=== PATIENT | male | born 1990 | race African-American/Black ===

== ENCOUNTER 2020-09-30 12:49 | Inpatient (IN) | payer OTHER ==
[2020-09-30] VITALS (15 sets, daily range): BP systolic 98–133; BP diastolic 51–80
[~2020-09-30] VITALS: Ht 177.8 cm; Wt 73.2 kg
[2020-09-30 13:21] LABS: BASO % 0.1 % (0.0-1.0); LYMPH % 7.1 % (27.0-41.0); MEAN CELL VOLUME 79.5 fl (80.0-94.0); MEAN CORPUSCULAR HGB 26.5 pg (27.0-31.0); MEAN CORPUSCULAR HGB CONC 33.3 g/dl (33.0-37.0); MEAN PLATELET VOLUME 9.2 fl (9.6-12.3); MONO # 0.7 10*3/uL (0.1-1.0); MONO % 4.7 % (3.0-9.0); NEUT % 87.8 % (47.0-73.0); PLATELET COUNT AUTOMATED 417 10*3/uL (130-400); RED BLOOD COUNT 6.16 10*6/uL (4.50-5.90); RED CELL DISTRI WIDTH 13.2 % (0-14.5); WHITE BLOOD COUNT 14.8 10*3/uL (4.8-10.8)
[2020-09-30 13:37] LABS: ALBUMIN 4.4 gm/dl (3.1-4.5); ALKALINE PHOSPHATASE 90 U/L (45-117); BUN 16 mg/dl (7-24); CHLORIDE 101 mmol/L (98-107); CREATININE 1.23 mg/dL (0.70-1.30); POTASSIUM 3.3 mmol/L (3.5-5.1); SGOT/AST 9 IU/L (3-35); SGPT/ALT 18 U/L (12-78); SODIUM 139 mmol/L (136-145); TOTAL PROTEIN 9.7 gm/dL (6.4-8.2)
[2020-09-30 13:38] LABS: TROPONIN I < 0.015 ng/ml (<0.045)
[2020-09-30 14:14] LABS: BILIRUBIN 1+ (Negative); BLOOD 1+ (Negative); CLARITY Cloudy (Clear); COLOR Dark Yellow (Yellow); GLUCOSE Negative (Negative); KETONE 1+ (Negative); LEUKO ESTERASE Trace (Negative); NITRITE Negative (Negative); SPECIFIC GRAVITY >= 1.030 (1.001-1.030)
[2020-09-30 14:26] LABS: URINE AMPHETAMINES < 1000 (1000ng/ml); URINE BARBITURATES < 200 (200ng/ml); URINE BENZODIAZEPINES > 200 (200ng/ml); URINE CANNABINOIDS (THC) < 50 (50ng/ml); URINE COCAINE < 300 (300ng/ml); URINE METHADONE < 300 (300ng/ml); URINE OPIATES < 300 (300ng/ml)
[2020-09-30 14:34] LABS: URINE PHENCYCLIDINE < 25 (25ng/ml)
[2020-09-30 14:39] LABS: BACTERIA 2+; MUCOUS 1+; RBC 16-20 rbc/hpf (0-2)
[2020-09-30 17:32] LABS: ALBUMIN 3.9 gm/dl (3.1-4.5); BUN 16 mg/dl (7-24); CHLORIDE 105 mmol/L (98-107); CREATININE 1.01 mg/dL (0.70-1.30); POTASSIUM 3.5 mmol/L (3.5-5.1); SODIUM 141 mmol/L (136-145)
[2020-09-30 17:37] LABS: TROPONIN I < 0.015 ng/ml (<0.045)
[2020-09-30 21:23] LABS: ARTERIAL BLOOD GAS PH 7.216 (7.35-7.45); ARTERIAL BLOOD GAS PO2 121.3 (80-90)
[2020-09-30 21:24] LABS: BASO % 0.2 % (0.0-1.0); HEMATOCRIT 48.7 % (42.0-52.0); LYMPH # 1.9 10*3/uL (1.3-4.4); LYMPH % 9.4 % (27.0-41.0); MEAN CORPUSCULAR HGB 26.3 pg (27.0-31.0); MEAN CORPUSCULAR HGB CONC 30.8 g/dl (33.0-37.0); MEAN PLATELET VOLUME 9.5 fl (9.6-12.3); MONO # 1.2 10*3/uL (0.1-1.0); MONO % 6.1 % (3.0-9.0); NEUT # 16.6 10*3/uL (2.3-7.9); NEUT % 83.8 % (47.0-73.0); PLATELET COUNT AUTOMATED 426 10*3/uL (130-400); RED BLOOD COUNT 5.71 10*6/uL (4.50-5.90); RED CELL DISTRI WIDTH 13.3 % (0-14.5); WHITE BLOOD COUNT 19.8 10*3/uL (4.8-10.8)
[2020-09-30 21:31] LABS: MEAN CELL VOLUME 85.3 fl (80.0-94.0)
[2020-09-30 21:43] LABS: CPK 75 U/L (39-308)
[2020-09-30 21:45] LABS: BUN 20 mg/dl (7-24); CHLORIDE 102 mmol/L (98-107); CREATININE 1.87 mg/dL (0.70-1.30); POTASSIUM 3.7 mmol/L (3.5-5.1); SODIUM 145 mmol/L (136-145); TROPONIN I < 0.015 ng/ml (<0.045)
[2020-10-01 00:36] LABS: ALBUMIN 3.5 gm/dl (3.1-4.5); ALKALINE PHOSPHATASE 66 U/L (45-117); BUN 19 mg/dl (7-24); CHLORIDE 111 mmol/L (98-107); CREATININE 1.38 mg/dL (0.70-1.30); POTASSIUM 3.3 mmol/L (3.5-5.1); SGOT/AST 11 IU/L (3-35); SGPT/ALT 13 U/L (12-78); SODIUM 147 mmol/L (136-145); TOTAL PROTEIN 7.2 gm/dL (6.4-8.2)
[2020-10-01 05:00] VITALS: BP 95/64
[2020-10-01 06:16] LABS: MEAN CELL VOLUME 82.3 fl (80.0-94.0); MEAN CORPUSCULAR HGB 26.4 pg (27.0-31.0); MEAN CORPUSCULAR HGB CONC 32.1 g/dl (33.0-37.0); PLATELET COUNT AUTOMATED 304 10*3/uL (130-400); RED BLOOD COUNT 4.74 10*6/uL (4.50-5.90); RED CELL DISTRI WIDTH 13.5 % (0-14.5); WHITE BLOOD COUNT 22.8 10*3/uL (4.8-10.8)
[2020-10-01 06:29] LABS: ALBUMIN 3.3 gm/dl (3.1-4.5); ALKALINE PHOSPHATASE 61 U/L (45-117); BUN 18 mg/dl (7-24); CHLORIDE 112 mmol/L (98-107); CREATININE 1.02 mg/dL (0.70-1.30); FREE T4 0.83 ng/dl (0.76-1.46); POTASSIUM 3.2 mmol/L (3.5-5.1); SGOT/AST 20 IU/L (3-35); SGPT/ALT 15 U/L (12-78); SODIUM 146 mmol/L (136-145); TOTAL PROTEIN 6.8 gm/dL (6.4-8.2)
[2020-10-01 06:34] LABS: THYROID STIM HORMONE (HS) 0.106 uIU/ml (0.358-4.75)
[2020-10-01 06:58] LABS: PLATELET SUFFICIENCY NORMAL (NORMAL); POLYCHROMASIA SLIGHT; TOTAL CELLS COUNTED 100 #CELLS
[2020-10-01 08:00] VITALS: BP 116/62
[2020-10-01 12:00] VITALS: BP 123/72
[2020-10-01 16:00] VITALS: BP 117/66
[2020-10-01 20:00] VITALS: BP 114/69
[2020-10-02] VITALS: BP 127/55
[2020-10-02 04:00] VITALS: BP 125/69
[2020-10-02 06:54] LABS: CHLORIDE 116 mmol/L (98-107); POTASSIUM 3.3 mmol/L (3.5-5.1); SODIUM 147 mmol/L (136-145)
[2020-10-02 07:03] LABS: ALBUMIN 3.6 gm/dl (3.1-4.5); ALKALINE PHOSPHATASE 61 U/L (45-117); BUN 16 mg/dl (7-24); CREATININE 0.92 mg/dL (0.70-1.30); SGOT/AST 29 IU/L (3-35); SGPT/ALT 19 U/L (12-78); TOTAL PROTEIN 7.3 gm/dL (6.4-8.2)
[2020-10-02 07:11] LABS: BASO % 0.1 % (0.0-1.0); EOS % 0.1 % (1.0-4.0); HEMATOCRIT 38.2 % (42.0-52.0); LYMPH # 1.5 10*3/uL (1.3-4.4); LYMPH % 7.3 % (27.0-41.0); MEAN CELL VOLUME 82.7 fl (80.0-94.0); MEAN CORPUSCULAR HGB 26.6 pg (27.0-31.0); MEAN CORPUSCULAR HGB CONC 32.2 g/dl (33.0-37.0); MEAN PLATELET VOLUME 9.8 fl (9.6-12.3); MONO # 1.5 10*3/uL (0.1-1.0); MONO % 7.1 % (3.0-9.0); NEUT # 17.6 10*3/uL (2.3-7.9); PLATELET COUNT AUTOMATED 273 10*3/uL (130-400); RED BLOOD COUNT 4.62 10*6/uL (4.50-5.90); RED CELL DISTRI WIDTH 13.4 % (0-14.5); WHITE BLOOD COUNT 20.7 10*3/uL (4.8-10.8)
[2020-10-02 07:28] LABS: CPK 980 U/L (39-308)
[2020-10-02 08:00] VITALS: BP 124/72
[2020-10-02 12:00] VITALS: BP 137/71
[2020-10-02 16:00] VITALS: BP 134/82
[2020-10-02 20:00] VITALS: BP 140/83
[2020-10-03] VITALS: BP 99/69
[2020-10-03 04:00] VITALS: BP 112/57
[2020-10-03 06:15] LABS: BASO % 0.1 % (0.0-1.0); EOS % 0.1 % (1.0-4.0); HEMATOCRIT 36.5 % (42.0-52.0); LYMPH # 2.1 10*3/uL (1.3-4.4); LYMPH % 12.1 % (27.0-41.0); MEAN CELL VOLUME 80.9 fl (80.0-94.0); MEAN CORPUSCULAR HGB 26.6 pg (27.0-31.0); MEAN CORPUSCULAR HGB CONC 32.9 g/dl (33.0-37.0); MEAN PLATELET VOLUME 9.9 fl (9.6-12.3); MONO # 1.1 10*3/uL (0.1-1.0); MONO % 6.4 % (3.0-9.0); NEUT % 80.8 % (47.0-73.0); PLATELET COUNT AUTOMATED 257 10*3/uL (130-400); RED BLOOD COUNT 4.51 10*6/uL (4.50-5.90); RED CELL DISTRI WIDTH 13.1 % (0-14.5); WHITE BLOOD COUNT 17.3 10*3/uL (4.8-10.8)
[2020-10-03 06:35] LABS: BUN 8 mg/dl (7-24); CHLORIDE 109 mmol/L (98-107); POTASSIUM 3.1 mmol/L (3.5-5.1); SODIUM 143 mmol/L (136-145)
[2020-10-03 06:41] LABS: ALKALINE PHOSPHATASE 55 U/L (45-117); CREATININE 0.73 mg/dL (0.70-1.30); SGOT/AST 23 IU/L (3-35); SGPT/ALT 17 U/L (12-78); TOTAL PROTEIN 6.1 gm/dL (6.4-8.2)
[2020-10-03 06:48] LABS: CPK 437 U/L (39-308)
[2020-10-03 08:00] VITALS: BP 124/78
[2020-10-03 12:00] VITALS: BP 104/56
[2020-10-03 16:00] VITALS: BP 107/65
[2020-10-03 20:00] VITALS: BP 115/61
[2020-10-04] VITALS: BP 135/69
[2020-10-04 05:53] LABS: BUN 4 mg/dl (7-24); CHLORIDE 109 mmol/L (98-107); CREATININE 0.78 mg/dL (0.70-1.30); SODIUM 140 mmol/L (136-145)
[2020-10-04 06:02] LABS: BASO % 0.1 % (0.0-1.0); EOS # 0.1 10*3/uL (0.0-0.4); EOS % 0.5 % (1.0-4.0); HEMATOCRIT 39.1 % (42.0-52.0); LYMPH # 2.4 10*3/uL (1.3-4.4); LYMPH % 16.3 % (27.0-41.0); MEAN CELL VOLUME 80.6 fl (80.0-94.0); MEAN CORPUSCULAR HGB 26.4 pg (27.0-31.0); MEAN CORPUSCULAR HGB CONC 32.7 g/dl (33.0-37.0); MEAN PLATELET VOLUME 10.2 fl (9.6-12.3); MONO # 0.9 10*3/uL (0.1-1.0); MONO % 6.2 % (3.0-9.0); NEUT # 11.2 10*3/uL (2.3-7.9); NEUT % 76.5 % (47.0-73.0); PLATELET COUNT AUTOMATED 277 10*3/uL (130-400); RED BLOOD COUNT 4.85 10*6/uL (4.50-5.90); RED CELL DISTRI WIDTH 12.6 % (0-14.5); WHITE BLOOD COUNT 14.6 10*3/uL (4.8-10.8)
[2020-10-04 08:00] VITALS: BP 123/69
[2020-10-04] MEDS ORDERED: ZYPREXA2.5 MG PO (10:09)
[2020-10-04] MEDS ORDERED: AUGMENTIN 875875 MG PO (10:09)
== END 2020-10-04 10:45 | disposition home or self-care (01) | DRG 720 ==
LOC: ED 12:49 → EDHOLD 16:10 → ICCU 16:10 → EDHOLD 16:53 → ICCU 22:59
PROVIDERS: Emergency Medicine; Family Medicine; Internal Medicine; Student in an Organized Health Care Education/Training Program; ADMIT Internal Medicine; ATTEND Internal Medicine
DX: A41.9 Sepsis, unspecified organism (principal); N30.01 Acute cystitis with hematuria; F19.10 Other psychoactive substance abuse, uncomplicated; E87.6 Hypokalemia; G93.41 Metabolic encephalopathy; E83.41 Hypermagnesemia; R73.9 Hyperglycemia, unspecified; R00.1 Bradycardia, unspecified; D47.3 Essential (hemorrhagic) thrombocythemia; N17.0 Acute kidney failure with tubular necrosis; N18.1 Chronic kidney disease, stage 1